=== PATIENT | male | born 2000 | race Two or more races ===

== ENCOUNTER 2019-02-13 18:18 | Emergency (ER) | payer OTHER ==
[2019-02-13] MEDS ORDERED: Lidocaine 2% EPI 1:200000 MPF* 10 ML VIAL INJ ONE (19:25)
--- NOTE | 2019-02-13 19:33 | ED ---
Laceration/Wound HPI - HPI Summary HPI Summary: The patient is a 18 y/o M presenting to [facility] with a chief complaint of laceration to the left thumb tonight. He reports that he had been cutting food while cooking when the knife slipped and cut the distal end of his thumb. He denies any numbness in the hand. Currently, the dull pain is rated 4/10 in severity. Pressure applied to the wound to control bleeding. Nonsmoker, occasional EtOH, no substance use. Medications and allergies reviewed. - History of Current Complaint Stated Complaint: LT THUMB LAC PER PT Time Seen by Provider: 02/13/19 19:20 Hx Obtained From: Patient Onset/Duration: Sudden Onset, Lasting Hours, Still Present Aggravating: Nothing Alleviating: Compression Onset Severity: Mild Current Severity: Mild Pain Intensity: 4 Pain Scale Used: 0-10 Numeric Associated Signs & Symptoms: Negative - no numbness in the left hand, Pain - Allergy/Home Medications Allergies/Adverse Reactions: Allergies Allergy/AdvReac Type Severity Reaction Status Date / Time No Known Allergies Allergy Verified 02/13/19 19:23 Home Medications: Home Medications NK [No Home Medications Reported] 02/13/19 [History Confirmed 02/13/19] PMH/Surg Hx/FS Hx/Imm Hx Respiratory History: Denies: Hx Asthma Sensory History: Reports: Hx Contacts or Glasses Opthamlomology History: Reports: Hx Contacts or Glasses - Surgical History Surgical History: None Surgery Procedure, Year, and Place: none Infectious Disease History: No Infectious Disease History: Reports: Traveled Outside the [place] in Last 30 Days - [place] - Family History Known Family History: Negative: Hypertension - Social History Alcohol Use: Occasionally Hx Substance Use: No Substance Use Type: Reports: None Hx Tobacco Use: No Smoking Status (MU): Never Smoked Tobacco Review of Systems Positive: Other - laceration to the left thumb Negative: Numbness All Other Systems Reviewed And Are Negative: Yes Physical Exam - Summary Physical Exam Summary: Appearance: Well-appearing, Well-nourished, lying in bed comfortable Skin: 2cm laceration on the left thumb, Warm, dry, no obvious rash Eyes: sclera anicteric, no conjunctival pallor ENT: mucous membranes moist Neck: deferred Respiratory: No signs of respiratory distress Cardiovascular: Appears well perfused, pulses are nml Abdomen: deferred Musculoskeletal: Moving all 4 extremities without obvious discomfort Neurological: Awake and alert, mentation is normal, speech is fluent and appropriate Psychiatric: affect is normal, does not appear anxious or depressed Triage Information Reviewed: Yes Vital Signs On Initial Exam: Initial Vitals Temp Pulse Resp BP Pulse Ox 97.9 F 85 16 151/91 98 02/13/19 18:20 02/13/19 18:20 02/13/19 18:20 02/13/19 18:20 02/13/19 18:20 Vital Signs Reviewed: Yes Procedures - Laceration/Wound Repair 1 Location: Other - left thumb Description: Linear Anesthesia: Digital, Lido, Epi Length, Depth and Shape: 2 cm Laceration/Wound Explored: Other - irrigated with tapwater Suture Type: Nylon - 4-0 Number of Sutures: 3 Diagnostics - Vital Signs Vital Signs Temp Pulse Resp BP Pulse Ox 02/13/19 18:20 97.9 F 85 16 151/91 98 - Laboratory Lab Statement: Any lab studies that have been ordered have been reviewed, and results considered in the medical decision making process. Re-Evaluation - Re-Evaluation First Eval Re-Evaluation Time: 19:40 Comment: Laceration repair performed (see note). Discharge plan discussed. Laceration Repair Course/Dx - Course Course Of Treatment: Patient is a 18 y/o M with cc of laceration to the left distal thumb following accident of a knife slipping while cooking tonight. There is no numbness in the hand. Upon physical exam, the patient exhibits a 2cm laceration on the left thumb. Lidocaine with epinephrine 2% injected into the left hand to prepare for suture placement. Laceration repaired with digital block, tapwater irrigation, and three 4-0 nylon sutures for closure. Patient is instructed to follow up with PCP in 7-10 days for suture removal. He understands and agrees with this plan. - Clinical Impression Provider Diagnoses: Laceration of left thumb Discharge ED - Sign-Out/Discharge Documenting (check all that apply): Patient Departure - Patient will be discharged home. Patient Received Moderate/Deep Sedation with Procedure: No - Discharge Plan Condition: Good Disposition: HOME Patient Education Materials: Care For Your Stitches (DC), Finger Laceration (ED ) [facility] - [facility] Days Additional Instructions: Follow up with your primary care provider in 7-10 days for suture removal. Return to the emergency department for any new or worsening symptoms. - Billing Disposition and Condition Condition: GOOD Disposition: Home - Attestation Statements Document Initiated by Irineo: Yes Documenting Maria Luisaibcaroline: Therese Loco Provider For Whom Irineo is Documenting (Include Credential): Dr. Lai Nelson MD Scribe Attestation: Therese Paniagua scribed for Dr. Lai Nelson MD on 02/14/19 at 0529. Scribe Documentation Reviewed: Yes Provider Attestation: The documentation as recorded by the Therese granados accurately reflects the service I personally performed and the decisions made by me, Dr. Lai Nelson MD Status of Scravinash Document: Viewed
[2019-02-13] MEDS ORDERED: Lidocaine 2% w/ EPI 1:200,000* 20 ML SDV VIAL INJ ONE (19:35)
[2019-02-13 20:15] VITALS: BP 138/89
== END 2019-02-13 20:14 | disposition home or self-care (01) ==
LOC: ED 18:18
DX: S61.012A Laceration without foreign body of left thumb without damage to nail, initial encounter (principal); W26.0XXA Contact with knife, initial encounter; Y93.G3 Activity, cooking and baking; Y92.9 Unspecified place or not applicable
CPT/HCPCS: 12001; 99282